=== PATIENT | female | born 1965 | race Caucasian/White ===

== ENCOUNTER 2017-06-18 10:12 | Emergency (ER) | payer MEDICAID ==
[~2017-06-18] VITALS: Ht 167.6 cm; Wt 83.6 kg
[~2017-06-18 10:12] MED LIST: ACET1TAB12 PO; CLIN-79 PO; DICL100G15 TOP; HYDR-569 PO; IBUP-1984 PO; NAPR-56 PO; NO HOME MEDS
[2017-06-18] MEDS ORDERED: DOXY20TA3 PO (15:35)
[2017-06-18 16:09] VITALS: BP 107/81
== END 2017-06-18 16:10 | disposition home or self-care (01) ==
LOC: ER 10:13
DX: L08.89 Other specified local infections of the skin and subcutaneous tissue (principal); B95.8 Unspecified staphylococcus as the cause of diseases classified elsewhere; Z98.890 Other specified postprocedural states
CPT/HCPCS: 99283

== ENCOUNTER 2017-10-29 11:35 | Emergency (ER) | payer MEDICAID ==
[~2017-10-29] VITALS: Ht 167.6 cm; Wt 82.0 kg
[~2017-10-29 11:35] MED LIST changes: +CEPH500C5 PO; +DOXY20TA3 PO; -NAPR-56 PO
[2017-10-29 12:16] VITALS: BP 123/57
[2017-10-29] MEDS ORDERED: albuterol 2.5 MG/3 ML nebule NEB ONE (12:45)
[2017-10-29] MEDS ORDERED: ipratropium/albuterol 3ml nebule NEB ONE (12:45)
[2017-10-29] MEDS ORDERED: SULF1TAB49 PO (12:51)
[2017-10-29] MEDS ORDERED: HYDR-3965 PO (12:51)
[2017-10-29] MEDS ORDERED: MUPI22OI30 TOP (12:51)
== END 2017-10-29 13:19 | disposition home or self-care (01) ==
LOC: ER 11:36
DX: L02.415 Cutaneous abscess of right lower limb (principal); L03.115 Cellulitis of right lower limb; B95.8 Unspecified staphylococcus as the cause of diseases classified elsewhere; Z98.890 Other specified postprocedural states; Z79.899 Other long term (current) drug therapy
CPT/HCPCS: 94640; 94760; 99283

== ENCOUNTER 2020-02-05 15:43 | Emergency (ER) | payer MEDICAID ==
[~2020-02-05] VITALS: Ht 167.6 cm; Wt 98.5 kg
[~2020-02-05 15:43] MED LIST changes: -CEPH500C5 PO; -CLIN-79 PO; +CLIN150C8 PO; +HYDR-4383 PO; -HYDR-569 PO; +OXYC-145 PO; +TRIA15OI2 TOP
[2020-02-05 15:58] VITALS: BP 130/86
[2020-02-05] MEDS ORDERED: BACDS PO (16:35)
[2020-02-05] MEDS ORDERED: NEOM10DR45 LEFT EAR (16:35)
--- NOTE | 2020-02-05 16:52 | NUR ---
pt seen and dc'd by provider
== END 2020-02-05 16:53 | disposition home or self-care (01) ==
LOC: ER 15:44
DX: H60.92 Unspecified otitis externa, left ear (principal); L08.89 Other specified local infections of the skin and subcutaneous tissue; Z98.890 Other specified postprocedural states; Z59.0 Homelessness; Z79.899 Other long term (current) drug therapy
CPT/HCPCS: 99283

== ENCOUNTER 2021-06-22 15:21 | Emergency (ER) | payer MEDICAID ==
[~2021-06-22 15:21] MED LIST changes: +NEOM10DR45 LEFT EAR
--- NOTE | 2021-06-22 16:16 | NUR ---
NOT IN LOBBY, CALLED TWICE
--- NOTE | 2021-06-22 17:33 | NUR ---
NOT IN LOBBY
== END 2021-06-22 17:34 | disposition left against medical advice (07) ==
LOC: ER 15:21
DX: Z53.21 Procedure and treatment not carried out due to patient leaving prior to being seen by health care provider (principal)

== ENCOUNTER 2021-12-13 23:13 | Emergency (ER) | payer MEDICAID | END 2021-12-14 01:53 | disposition left against medical advice (07) | LOC: ER 23:14 | DX: K04.7 Periapical abscess without sinus (principal); Z53.21 Procedure and treatment not carried out due to patient leaving prior to being seen by health care provider ==

== ENCOUNTER 2023-05-20 15:20 | Emergency (ER) | payer MEDICAID ==
[~2023-05-20] VITALS: Ht 167.6 cm; Wt 96.1 kg
[~2023-05-20 15:20] MED LIST changes: +CLIN-214 PO; -CLIN150C8 PO
[2023-05-20 15:21] VITALS: BP 185/97; PULSE 92; RESP 16; TEMP 99; O2SAT 96
[2023-05-20] MEDS ORDERED: PENI500T2 PO (15:40)
[2023-05-20] MEDS ORDERED: NAPR-56 PO (15:40)
== END 2023-05-20 16:25 | disposition home or self-care (01) ==
LOC: ER 15:20
DX: K08.89 Other specified disorders of teeth and supporting structures (principal); R22.2 Localized swelling, mass and lump, trunk; Z59.00 Homelessness unspecified; Z79.2 Long term (current) use of antibiotics; Z79.899 Other long term (current) drug therapy
CPT/HCPCS: 99283

== ENCOUNTER 2023-06-14 13:06 | Emergency (ER) | payer MEDICAID ==
[~2023-06-14] VITALS: Ht 167.6 cm; Wt 95.1 kg
[~2023-06-14 13:06] MED LIST changes: +NAPR-56 PO
[2023-06-14 13:45] VITALS: BP 177/99; PULSE 88; TEMP 98.5; O2SAT 97
[2023-06-14 13:51] VITALS: RESP 18
[2023-06-14] MEDS ORDERED: TRIA15CR61 TOP (14:12)
[2023-06-14] MEDS ORDERED: dexamethasone sod phosphate 10mg/ml inj IM STA (14:14)
[2023-06-14] MEDS ORDERED: diphenhydrAMINE 50 mg/ml inj IM ONE (14:15)
== END 2023-06-14 17:47 | disposition home or self-care (01) ==
LOC: ER 13:07
DX: L23.9 Allergic contact dermatitis, unspecified cause (principal); Z98.891 History of uterine scar from previous surgery; Z79.2 Long term (current) use of antibiotics; Z79.899 Other long term (current) drug therapy
CPT/HCPCS: 99283

== ENCOUNTER 2024-08-11 15:48 | Emergency (ER) | payer MEDICAID ==
[~2024-08-11] VITALS: Ht 167.6 cm; Wt 81.8 kg
[~2024-08-11 15:48] MED LIST changes: +DOXY20TA20 PO; -DOXY20TA3 PO; -NAPR-56 PO
[2024-08-11] MEDS ORDERED: AMOX-580 PO (16:53)
[2024-08-11] MEDS: ketorolac trometh 30MG/ML vial 30 MG/ML VIAL IM ONE (16:53)
[2024-08-11 16:57] VITALS: BP 142/68; PULSE 68; RESP 15; TEMP 98; O2SAT 99
== END 2024-08-11 17:00 | disposition home or self-care (01) ==
LOC: ER 15:48
DX: K08.89 Other specified disorders of teeth and supporting structures (principal)
CPT/HCPCS: 96372; 99283; J1885

== ENCOUNTER 2025-04-29 10:07 | Emergency (ER) | payer MEDICAID ==
[~2025-04-29] VITALS: Ht 167.6 cm; Wt 88.9 kg
[2025-04-29 10:08] VITALS: PULSE 83; TEMP 98; O2SAT 98
--- NOTE | 2025-04-29 10:48 | RADIOLOGY REPORT ---
CLINICAL INDICATION: HAND PAIN TECHNIQUE: 3 radiographic views of the left hand were obtained. Comparison: None FINDINGS/IMPRESSION: Mildly displaced fracture of the 5th metacarpal bone.
--- NOTE | 2025-04-29 11:20 | Physician Documentation ---
History of Present Illness ~ Chief Complaint: Hand pain Stated Complaint: POSS BROKEN L HAND Time Seen by MD: 11:00 Primary Medical Doctor: [facility] HPI 59-year-old female punched a door yesterday with her left hand injuring it. Now complains of swelling in her whole hand and has pain particularly in her 4th and 5th metacarpals Tetanus within 5 years: Yes Medication Reconciliation Allergies: Coded Allergies: No Known Allergies (Unverified , 06/14/23) Scheduled Acetaminophen with Codeine (Tylenol with Codeine #3 Tablet), 1 TABLET PO Q6H Clindamycin HCl (Clindamycin HCl CAPSULE), 3 CAP PO QID Diclofenac Sodium (Voltaren), 1 GM TOP Q6H Doxycycline Hyclate (Doxycycline Hyclate), 1 TAB PO Q12H Hydrocodone/Acetaminophen ([place] 5-325 Tablet), 1 TABLET PO Q4H Ibuprofen* (Motrin*), 800 MG PO TID Neomycin/Polymyxin B Sulf/Hc (Talkglpz-Sdjbcdykj-Ty Ear Susp), 4 DROP LEFT EAR Q8H Oxycodone HCl/Acetaminophen (Percocet 5-325 mg Tablet), 1-2 TAB PO Q4H Triamcinolone Acetonide (Triamcinolone Acetonide), 1 APPLIC TOP Q12H Miscellaneous Medications Home Med List (No Home Medications), (Reported) Past Medical History Past Medical History: *INFECTIOUS DZ* Past Surgical History: Other Past Family History: NONE KNOWN Alcohol Use: None Drug Use: none Lives with: Family Lives In: Homeless Review of Systems All Other Systems at this time: Reviewed and Negative ROS As stated above in the HPI, otherwise all systems are reviewed and negative. Physical Exam Vital Signs: Temperature: 98.0, Source: Temporal, Heart Rate: 83, Respiratory Rate: 16, Pulse Oximetry: 98, Weight: 88.900 Oxygen Flow Rate: 0 Physical Exam General: Alert, no apparent distress. Extremities: Normal range of motion, notable swelling left hand posterior tender to the 5th metacarpal via palpation Neurologic: Oriented x4. Psychiatric: Normal mood and affect. Skin: Normal color, warm and dry. No edema, no ecchymosis. Progress Results/Orders Results/Orders Orders - LORENZO DAIGLE NP Ortho Orders (04/29/25 ) Completed Orders - PILO,LORENZO H PRODUCT LISTER Hydrocodone/Apap 10/325 ([place] 10/325mg (04/29/25 11:20) Medications Received in ER Medications (Trade) Dose Ordered Sig/Flip Route PRN Reason Start Time Stop Time Status Last Admin Dose Admin ([place] 10/325mg tab) 1 tab ONCE ONCE PO 04/29/25 11:20 04/29/25 11:21 DC 04/29/25 11:28 1 TAB Vital Signs 04/29/25 04/29/25 04/29/25 10:08 11:28 12:07 Temp 98.0 Pulse 83 Resp 16 18 B/P (MAP) Pulse Ox 98 O2 Flow Rate 0 Medical Decision Making Additional information obtaine: N/A Findings This patient presents with a suspected left 5th metacarpal fracture per my interpretation of her x-ray. Going to have her splinted in ulnar gutter and have her follow up in the outpatient setting. I advised her to take ibuprofen alternating with Tylenol for pain and swelling General Diff Dx:Considerations: Unlikely: Abrasion, Contusion, Fracture, Hematoma, Laceration, Malunion, Neurovascular injury, Open fracture, Sprain, Ulcer, Other Shoulder Diff Dx:Consideration: Unlikely: AC separation, Adhesive capsulitis, Arthritis, Bicipital tendonitis, Calcific tendonitis, Cervical disc disease, Contusion, Dislocation, Fracture-humerus, Fracture-scapula, Fracture-clavicle, GB disease, Hematoma, Impingement syndrome, Myocardial infarction, Neurovascular injury, Open fracture-humerus, Open fracture-scapula, Open fracture-clavicle, Rotator cuff injury, SC dislocatoin, Sprain, Subacromial bursitis, Other Elbow Diff Dx:Considerations: Unlikely: Abrasion, Arthritis, Contustion, DJD, Fracture-humerus, Fracture-radial head, Fracture-radius, Fracture-ulna, Gout, Hematoma, Laceration, Neurovascular injury, Olecranon bursitis, Open fracture, Osteomyelitis, Radial head subluxation, Rheumatoid arthritis, Septic, Sprain, Ulcer, Other Wrist Diff Dx:Considerations: Unlikely: Abrasion, Arthritis, DJD, Gout, Rheumatoid, Septic, Carpal tunnel snydrome, Contusion, Dislocation, Fracture- carpal, Fracture-radius, Fracture-ulna, Ganglion, Laceration, Neurovascular injury, Open fracture, Strain, Other Hand Diff Dx:Considerations: Include: Abrasion, Arthritis, Contusion, DJD, Felon, Fracture-carpal, Fracture-metacarpal, Fracture-phalynx, Fracture-radius, Fracture-ulna, Gout, Hematoma, Herpetic hung, Laceration, Neurovascular inju ry, Open fracture, Paronychia, Rheumatoid arthritis, Septic, Sprain, Subungual hematoma, Tenosynovitis, Volar plate injury, Cellulitis, Malunion, Other Finger Diff Dx:Considerations: Unlikely: Abrasion, Cellulitis, Contusion, Dislocation, Fracture, Hematoma, Laceration, Neurovascular injury, Open fracture, Subungual hematoma, Other Departure Disposition: 01 HOME / SELF CARE / HOMELESS Impression: Primary Impression: Fracture of hand Condition: Stable Discharge Instructions: Fracture, Hand Additional Instructions: You may obtain a referral from your primary care to see an orthopedic surgeon. Utilize ibuprofen and Tylenol to maintain pain and swelling Follow up with the your primary care for further evaluation Referrals: NO PRIMARY CARE PROVIDER (PCP) Education Educated: Patient Educated regarding: diagnosis Signature Scribe Signature: t Attestation: Scribed for Lorenzo Daigle Community Facilitator by Lorenzo Rivera NP . 04/29/25 11:34 LORENZO DAIGLE NP Apr 29, 2025 11:20
[2025-04-29 11:28] VITALS: RESP 18
[2025-04-29] MEDS: HYDROcodone/acetaminophen 10/325mg tab PO ONE (11:28)
== END 2025-04-29 11:53 | disposition home or self-care (01) ==
LOC: ER 10:08
DX: S62.307A Unspecified fracture of fifth metacarpal bone, left hand, initial encounter for closed fracture (principal); W22.09XA Striking against other stationary object, initial encounter; Y93.89 Activity, other specified; Y92.89 Other specified places as the place of occurrence of the external cause; Y99.8 Other external cause status
CPT/HCPCS: 29125; 73130; 99283; A6446; A6449